=== PATIENT | male | born 1950 | race Caucasian/White ===

== ENCOUNTER → 2018-01-27 | Day surgery (SDC) | payer MEDICARE ==
[2018-01-23 10:58] LABS: BASOPHILS # (AUTO) 0.1 (0.0-0.1); BASOPHILS % 0.7 % (0.0-1.0); EOSINOPHILS # (AUTO) 0.2 (0.0-0.4); EOSINOPHILS % 2.4 % (0.0-6.0); HEMATOCRIT 55.7 % (38.2-49.6); HEMOGLOBIN 18.1 g/dL (14.0-18.0); LYMPHOCYTES # (AUTO) 1.6 (1.0-3.2); LYMPHOCYTES % 21.1 % (18.0-39.1); MEAN CORPUSCULAR HEMOGLOBIN 28.3 pg (28-32); MEAN CORPUSCULAR HGB CONC 32.5 g/dL (31-35); MEAN CORPUSCULAR VOLUME 87.2 fL (81-99); MONOCYTES # (AUTO) 0.8 (0.2-0.8); MONOCYTES % 10.5 % (4.4-11.3); NEUTROPHILS # (AUTO) 4.9 (2.1-6.9); PLATELET COUNT 138 x10e3/uL (140-360); RED BLOOD COUNT 6.39 x10e6/uL (4.3-5.7); RED CELL DISTRIBUTION WIDTH 14.1 % (11.7-14.4)
[~2018-01-27] MED LIST: FENTANYL CITRATE/PF 100MCG/2 ML INJ ONE; HYOSCYAMINE SULFATE 0.5 MG/ML AMP ONE; MIDAZOLAM HCL 2 MG/2 ML VIAL ONE; TESTOSTERONE TOP
--- OUTSIDE RECORDS SUMMARY | 2018-01-27 08:46 | XMS REPORT | Clinical Summary ---
Author Author [facility] Organization [facility] Address Unknown Phone Unavailable Care Team Providers Care Chief Science Officer Name Role Phone Asked, Pcp PCP Unavailable Allergies No Known Allergies Current Medications Prescription Sig. Disp. Refills Start End Date Status Date ANDROGEL 20.25 mg/1.25 PLACE 2 PUMPS TO EACH 5 05/02/20 Active gram (1.62 %) gel in SHOULDERS DAILY 16 metered-dose pump testosterone enanthate 50 mg. 04/05/20 Active (DELATESTRYL) 200 mg/mL 17 injection testosterone (ANDROGEL) APPLY TO PUMPS ON TO THE 02/09/20 Active 20.25 mg/1.25 gram (1.62 SKIN EVERY DAY 17 %) gel in metered-dose pump Active Problems No known active problems Encounters Date Type Specialty Care Team Description 01/17/2018 Office Visit Pato Maradiaga MD Prostate cancer ( Primary Dx) 12/30/2017 Refill Urology [facility] Hampton after 01/26/2017 Family History Medical History Relation Name Comments Heart disease Father Cancer Mother colon Relation Name Status Comments Father Mother Social History Tobacco Use Types Packs/Day Years Used Date Former Smoker Smokeless Tobacco: Never Used Alcohol Use Drinks/Week oz/Week Comments Yes Sex Assigned at Date Recorded Not on file Last Filed Vital Signs Vital Sign Reading Time Taken Blood Pressure - - Pulse - - Temperature - - Respiratory Rate - - Oxygen Saturation - - Inhaled Oxygen - - Concentration Weight 111 kg (245 lb) 01/17/2018 8:08 AM CDT Height 175.3 cm (5' 9") 01/17/2018 8:08 AM CDT Body Mass Index 36.18 01/17/2018 8:08 AM CDT Plan of Treatment Date Type Specialty Care Team Description 01/23/2019 Office Visit Pato Maradiaga MD [address] [facility] [address] [place] [address] Health Maintenance Due Date Last Done Comments COLONOSCOPY 2000 ZOSTER VACCINE 2010 PNEUMOCOCCAL 2015 POLYSACCHARIDE VACCINE AGE 65 AND OVER PNEUMOCOCCAL-13 2015 INFLUENZA VACCINE 06/04/2017 Results * PSA, POST-PROSTATECTOMY (01/17/2018 8:35 AM) Component Value Ref Range PSA, ICMA <0.02 ng/mL Comment: REFERENCE RANGES for PSA: LESS THAN 0.10 ng/mL AFTER RADICAL PROSTATECTOMY. 4.0 ng/mL OR LESS IN HEALTHY MALES WITHOUT PROSTATECTOMY. PSA values obtained with different assay methods or kits cannot be used interchangeably. This test was performed using the Desti DxI method. PSA, ICMA is not to be used as a diagnostic procedure without confirmation of the diagnosis by another established product or procedure. The lower limit of accurate quantification for this assay is 0.02 ng/mL. PSA values less than 0.02 ng/mL cannot be accurately measured and will be reported as less than 0.02 ng/mL. Specimens with PSA levels below the lower limit of accurate quantification should be considered as negative. In patients with a negative result for post prostatectomy PSA, serial monitoring of PSA levels at regular intervals, along with physical examinations and other tests, may help to detect recurrent prostate cancer. Specimen Performing Laboratory [facility] * Testosterone (01/17/2018 8:35 AM) Component Value Ref Range Testosterone, total, TNP lc/ms/ms Comment: * Test not performed. * * SST (serum separator tube) is * * not an acceptable specimen * * for this test. Resubmit serum * * from a plain red-top tube. * Specimen Performing Laboratory [facility] after 01/26/2017 Insurance Payer Benefit Subscriber ID Type Phone Address Plan / Group [employer]HC MEDICARE AARP xxxxxxxxx O MEDICARE COMPLETE MCR [address]: [id number] [id number]
--- NOTE | 2018-01-27 11:26 | Operative Report ---
DATE OF PROCEDURE: January 27, 2018 REFERRING PHYSICIAN: Dr. Barbie Fox. PROCEDURE PERFORMED: Colonoscopy and polypectomy. INDICATIONS FOR COLONOSCOPY: Colorectal cancer screening. MEDICATION: Patient was done under MAC. Please see anesthesiologist's note. PROCEDURE: With the patient in the left lateral decubitus position, the flexible fiberoptic Olympus colonoscope was inserted into the rectum with ease and advanced all the way to the cecum. It was then withdrawn slowly. Mucosa overlying the cecum, ascending colon, transverse colon and descending colon grossly appeared to be within normal limits. Diverticular disease was noted to involve the distal descending and the sigmoid colon. Two polyps were snared and 4 polyps were hot biopsied from the sigmoid colon. Two polyps were snared and 4 polyps were hot biopsied from the rectum. The scope was then retroflexed into the distal rectum, and small internal hemorrhoids were noted, none of which was actively bleeding. The scope was then straightened out, and it was subsequently withdrawn. Patient tolerated procedure well. IMPRESSION 1. Sigmoid colon polyps times 6, two snared and four hot biopsied. 2. Diverticulosis. 3. Rectal polyps times 6, two snared and four hot biopsied. 4. Internal hemorrhoids, none actively bleeding. PLAN: Follow up histology. Initiate high-fiber, low-fat diet. Initiate high-fiber supplement. Patient will need a followup colonoscopy in 3 years. Job#: [id number] cc:BARBIE FOX DO
== END | disposition home or self-care (01) ==
LOC: OR 08:43
PROVIDERS: ATTEND Internal Medicine Gastroenterology
DX: Z12.11 Encounter for screening for malignant neoplasm of colon (principal); K63.5 Polyp of colon; K62.1 Rectal polyp; K57.30 Diverticulosis of large intestine without perforation or abscess without bleeding; K64.8 Other hemorrhoids; R03.0 Elevated blood-pressure reading, without diagnosis of hypertension; Z01.810 Encounter for preprocedural cardiovascular examination; Z01.812 Encounter for preprocedural laboratory examination; Z68.34 Body mass index [BMI] 34.0-34.9, adult
CPT/HCPCS: 36415; 45384; 45385; 85025; 88305; 93005; J1980; J2250; 45378

== ENCOUNTER → 2018-06-12 | Outpatient (CLI) | payer MEDICARE ==
[~2018-06-12] MED LIST changes: -FENTANYL CITRATE/PF 100MCG/2 ML INJ ONE; -HYOSCYAMINE SULFATE 0.5 MG/ML AMP ONE; -MIDAZOLAM HCL 2 MG/2 ML VIAL ONE
== END ==
LOC: CARD 13:42
PROVIDERS: ATTEND Family Medicine
DX: R20.2 Paresthesia of skin (principal)
CPT/HCPCS: 93922; 93925